=== PATIENT | female | born 1980 | race Asian ===

== ENCOUNTER 2019-03-22 12:07 | Emergency (ER) | payer OTHER ==
[~2019-03-22] VITALS: Ht 170.2 cm; Wt 83.9 kg
[2019-03-22 12:22] VITALS: BP 128/61
[2019-03-22] MEDS ORDERED: KETOROLAC TROMETHAMINE INJ 60 MG/2 ML VIAL IM ONE ×2 (12:52→13:00)
[2019-03-22] MEDS ORDERED: DEXAMETHASONE SOD PHOSPHATE 4 MG/ML VIAL ONE (12:52)
[2019-03-22] MEDS ORDERED: DEXAMETHASONE SOD PHOSPHATE 4 MG/ML VIAL IM ONE (13:00)
--- NOTE | 2019-03-22 13:08 | NUR ---
Patient discharged to home in stable condition. Written and verbal after care instructions given. Patient verbalizes understanding of instruction.
== END 2019-03-22 13:09 | disposition home or self-care (01) ==
LOC: ER 12:07
DX: J02.8 Acute pharyngitis due to other specified organisms (principal)
CPT/HCPCS: 96372 ×2; 99283; J1100; J1885

== ENCOUNTER 2025-04-03 03:42 | Emergency (ER) | payer OTHER ==
[~2025-04-03] VITALS: Ht 165.1 cm; Wt 70.8 kg
[2025-04-03] MEDS ORDERED: ONDANSETRON HCL/PF 4 MG/2 ML VIAL ONE (04:00)
[2025-04-03] MEDS ORDERED: MORPHINE SULFATE INJ 2 MG/ML DISP.SYRIN ONE (04:01)
[2025-04-03] MEDS: IV NS 0.9% 1,000 ML BAG IV ONE (04:22)
[2025-04-03] MEDS: MORPHINE SULFATE INJ 2 MG/ML DISP.SYRIN IV ONE (04:22)
[2025-04-03] MEDS: ONDANSETRON HCL/PF 4 MG/2 ML VIAL IVP ONE (04:22)
[2025-04-03 04:29] LABS: PLATELET COUNT (AUTO) 348 K/uL (150-450); RED BLOOD CELL COUNT(AUTO) 4.87 MIL/uL (4.0-5.2); RED CELL DISTRIBUTION WIDTH 13.8 % (11.5-15.0); WHITE BLOOD COUNT (AUTO) 14.2 K/uL (4.3-11.0)
[2025-04-03 04:37] LABS: CALCIUM, SERUM 8.9 mg/dL (8.5-10.1); CREATININE 0.8 mg/dL (0.6-1.3); SODIUM SERUM 141 mmol/L (136-145); UREA NITROGEN, BLOOD 15 mg/dL (7-18)
[2025-04-03 04:39] LABS: INR 0.95 (0.91-1.10)
[2025-04-03 04:43] LABS: ASPARTATE AMINOTRANSFERASE 176 U/L (15-37); TOTAL PROTEIN, SERUM 7.0 g/dL (6.4-8.2)
[2025-04-03 04:53] LABS: APPEARANCE,URINE CLEAR (CLEAR); BLOOD, URINE TRACE-INTA Ery/uL (NEGATIVE); LEUKOCYTE ESTERASE ,URINE NEGATIVE (NEGATIVE); NITRITE, URINE NEGATIVE (NEGATIVE); PREGNANCY TEST URINE QUAL NEGATIVE (NEGATIVE); UGLUCOSE NEGATIVE (NEGATIVE)
[2025-04-03 04:54] LABS: ADD URINE CULTURE NO; SQUAMOUS EPITHELIAL CELL,UR Few /HPF (None Seen)
[2025-04-03] MEDS ORDERED: FAMO-131 PO (06:21)
[2025-04-03] MEDS ORDERED: ONDA4TAB5 PO (06:21)
[2025-04-03 06:40] VITALS: BP 115/80; TEMP 98; O2SAT 96
== END 2025-04-03 06:40 | disposition home or self-care (01) ==
LOC: ER 03:48
DX: R10.13 Epigastric pain (principal); R11.10 Vomiting, unspecified; Z60.2 Problems related to living alone
CPT/HCPCS: 99285; 74176; 96374; 71045; 96361; 96375; 93005; 85025; 80048; 83690; 80076; 84703; 81001; 36415; 84484; 85730; J2405; J7030; J2270